=== PATIENT | female | born 1965 | race Caucasian/White ===

== ENCOUNTER 2017-03-21 08:10 | Observation (INO) | payer SELFPAY ==
[~2017-03-21] VITALS: Ht 165.1 cm; Wt 70.0 kg
[2017-03-21] VITALS (9 sets, daily range): BP systolic 125–183; BP diastolic 80–101; PULSE 62–96; RESP 16–19; TEMP 96.6–97.9; O2SAT 1–100
--- NOTE | 2017-03-21 08:39 | PD ---
HPI Chief Complaint: Chest Pain Time Seen by Provider: 08:25 Travel History International Travel<30 days: No Contact w/Intl Traveler<30days: No Traveled to known affect area: No History of Present Illness HPI The patient was seen and examined in the presence of the nurse. Patient complains of chest tightness and heaviness. Located left central chest. It radiates into the central chest. Started 2 hours ago. Nonexertional. Individual spells wax and wane and last about 5 minutes and goes away. Currently pain-free. No history of cardiac disease. Never stress testing. Symptoms severity is moderate. No alleviating factors. No exacerbating factors. She denies heartburn fever or cough. PFSH Past Medical History Diminished Hearing: No Reproductive: Yes (ENDOMETRIOSIS ) ?: Not Past Surgical History Hysterectomy: Yes (PARTIAL ) Joint Replacement: Yes (R ACL ) Social History Alcohol Use: Yes (OCC) Tobacco Use: No Substance Use: No Allergies-Medications (Allergen,Severity, Reaction): Coded Allergies: Penicillins (Verified Allergy, Unknown, RASHES , 03/21/17) codeine (Verified Allergy, Unknown, RASHES, 03/21/17) doxycycline (Verified Allergy, Unknown, Rash, 03/21/17) moxifloxacin (Verified Allergy, Unknown, Anaphylaxis, 03/21/17) Uncoded Allergies: SULFA DRUGS (Allergy, Unknown, Rash, 03/21/17) Reported Meds & Prescriptions Reported Meds & Active Scripts Active No Active Prescriptions or Reported Medications Review of Systems General / Constitutional: No: Fever Eyes: No: Visual changes HENT: No: Headaches Cardiovascular: Positive: Chest Pain or Discomfort Respiratory: No: Shortness of Breath Gastrointestinal: No: Abdominal Pain Genitourinary: No: Dysuria Musculoskeletal: No: Pain Skin: No Rash Neurologic: No: Weakness Psychiatric: No: Depression Endocrine: No: Polydipsia Hematologic/Lymphatic: No: Easy Bruising Physical Exam Narrative GENERAL: Well-nourished, well-developed patient in no apparent distress. SKIN: Focused skin assessment reveals no rash and nodules. Skin is Warm and dry. HEAD: Atraumatic. Normocephalic. EYES: Pupils equal and round. No scleral icterus. No injection or drainage. ENT: No nasal bleeding or discharge. Mucous membranes pink and moist. NECK: Trachea midline. No JVD. CARDIOVASCULAR: Regular rate and rhythm. No murmur appreciated. RESPIRATORY: No accessory muscle use. Clear to auscultation. Breath sounds equal bilaterally. GASTROINTESTINAL: Abdomen soft, non-tender, nondistended. Hepatic and splenic margins not palpable. MUSCULOSKELETAL: No obvious deformities. No clubbing. No cyanosis. No edema. NEUROLOGICAL: Awake and alert. No obvious cranial nerve deficits. Motor grossly within normal limits. Normal speech. PSYCHIATRIC: Appropriate mood and affect; insight and judgment normal. Data Data Last Documented VS Vital Signs Date Time Temp Pulse Resp B/P (MAP) Pulse Ox O2 Delivery O2 Flow Rate FiO2 03/21/17 09:00 74 18 160/92 (114) 99 Room Air 03/21/17 08:19 97.5 Orders Orders Electrocardiogram (03/21/17 08:31) Basic Metabolic Panel (Bmp) (03/21/17 08:31) Ckmb (Isoenzyme) Profile (03/21/17 08:31) Complete Blood Count With Diff (03/21/17 08:31) Magnesium (Mg) (03/21/17 08:31) Prothrombin Time / Inr (Pt) (03/21/17 08:31) Act Partial Throm Time (Ptt) (03/21/17 08:31) Troponin I (03/21/17 08:31) Chest, Single Ap (03/21/17 08:31) Ecg Monitoring (03/21/17 08:31) Iv Access Insert/Monitor (03/21/17 08:31) Oximetry (03/21/17 08:31) Aspirin (Aspirin) (03/21/17 08:45) Sodium Chloride 0.9% Flush (Ns Flush) (03/21/17 08:45) Labs Laboratory Tests Test 03/21/17 07:35 03/21/17 10:05 White Blood Count 9.0 TH/MM3 Red Blood Count 4.67 MIL/MM3 Hemoglobin 15.2 GM/DL Hematocrit 43.8 % Mean Corpuscular Volume 93.8 FL Mean Corpuscular Hemoglobin 32.6 PG Mean Corpuscular Hemoglobin Concent 34.7 % Red Cell Distribution Width 13.3 % Platelet Count 202 TH/MM3 Mean Platelet Volume 12.2 FL Neutrophils (%) (Auto) 70.7 % Lymphocytes (%) (Auto) 21.0 % Monocytes (%) (Auto) 6.6 % Eosinophils (%) (Auto) 1.1 % Basophils (%) (Auto) 0.6 % Neutrophils # (Auto) 6.4 TH/MM3 Lymphocytes # (Auto) 1.9 TH/MM3 Monocytes # (Auto) 0.6 TH/MM3 Eosinophils # (Auto) 0.1 TH/MM3 Basophils # (Auto) 0.1 TH/MM3 CBC Comment AUTO DIFF Differential Comment AUTO DIFF CONFIRMED Platelet Estimate NORMAL Platelet Morphology Comment ENLARGED Prothrombin Time 11.1 SEC Prothromb Time International Ratio 1.1 RATIO Activated Partial Thromboplast Time 26.8 SEC Blood Urea Nitrogen 12 MG/DL Creatinine 0.75 MG/DL Random Glucose 107 MG/DL Calcium Level 8.7 MG/DL Magnesium Level 2.2 MG/DL Sodium Level 143 MEQ/L Potassium Level 3.8 MEQ/L Chloride Level 112 MEQ/L Carbon Dioxide Level 25.9 MEQ/L Anion Gap 5 MEQ/L Estimat Glomerular Filtration Rate 81 ML/MIN Total Creatine Kinase 92 U/L Troponin I LESS THAN 0.02 NG/ML MDM Medical Decision Making Medical Screen Exam Complete: Yes Emergency Medical Condition: Yes Medical Record Reviewed: Yes Differential Diagnosis Differential diagnosis includes WI, angina, pericarditis, pleurisy, GERD, anxiety. Narrative Course I have reviewed the patient's electronic medical record. IV placed I reviewed the EKG which shows sinus rhythm and no ST elevation or ectopy I reviewed the chest x-ray is normal Extended cardiac monitoring shows sinus rhythm without ectopy CBC is normal Metabolic profile is normal CK is normal Troponin is normal Coagulation studies are normal I gave her an aspirin Patient is hypertensive but otherwise no risk factors. She has a negative workup here. She will be a 23 are observation on telemetry in the chest pain center in order to rule out cardiac cause of her symptoms. Diagnosis Primary Impression: Chest pain at rest Admitting Information Admitting Physician Requests: Observation Scripts No Active Prescriptions or Reported Meds Remy Blackwell MD Mar 21, 2017 08:39
[2017-03-21] MEDS ORDERED: ASPIRIN 325 MG TAB PO ONE (08:45)
[2017-03-21] MEDS ORDERED: SODIUM CHLORIDE 0.9% FLUSH 10 ML FLUSH IVF PRN (08:45)
--- NOTE | 2017-03-21 09:14 | RADRPT ---
EXAM DATE/TIME: 03/21/2017 08:50 [facility] COMPARISON: No previous studies available for comparison. INDICATIONS : Left upper chest pressure with shortness of breath and pain. MEDICAL HISTORY : None. SURGICAL HISTORY : None. ENCOUNTER: Initial ACUITY: 2 days PAIN SCORE: 7/10 LOCATION: Left chest FINDINGS: A single view of the chest demonstrates the lungs to be symmetrically aerated without evidence of mas s, infiltrate or effusion. The cardiomediastinal contours are unremarkable. Osseous structures are intact. CONCLUSION: Normal examination. Timothy Boogie MD on March 21, 2017 at 9:10 Board Certified Radiologist. This report was verified electronically.
[2017-03-21 09:23] LABS: AUTOMATED NEUTROPHIL # 6.4 TH/MM3 (1.8-7.7); BASOPHIL # 0.1 TH/MM3 (0-0.2); BASOPHIL % 0.6 % (0.0-2.0); EOSINOPHIL # 0.1 TH/MM3 (0-0.4); EOSINOPHIL % 1.1 % (0.0-4.0); HEMATOCRIT 43.8 % (35.0-46.0); HEMOGLOBIN 15.2 GM/DL (11.6-15.3); LYMPHOCYTE # 1.9 TH/MM3 (1.0-4.8); MEAN CELL VOLUME 93.8 FL (80.0-100.0); MEAN CORPUSCULAR HEMOGLOBIN 32.6 PG (27.0-34.0); MEAN CORPUSCULAR HGB CONC 34.7 % (32.0-36.0); MEAN PLATELET VOLUME 12.2 FL (7.0-11.0); MONO % 6.6 % (0.0-8.0); MONOCYTE # 0.6 TH/MM3 (0-0.9); NEUT % 70.7 % (16.0-70.0); PLATELET COUNT 202 TH/MM3 (150-450); RED BLOOD COUNT 4.67 MIL/MM3 (4.00-5.30); RED CELL DISTRIBUTION WIDTH 13.3 % (11.6-17.2)
[2017-03-21 10:31] LABS: INTERNATIONAL NORMALIZED RATIO 1.1 RATIO; PROTHROMBIN TIME - PATIENT 11.1 SEC (9.8-11.6)
[2017-03-21 10:37] LABS: BICARBONATE 25.9 MEQ/L (21.0-32.0); BLOOD UREA NITROGEN 12 MG/DL (7-18); CALCIUM 8.7 MG/DL (8.5-10.1); CHLORIDE 112 MEQ/L (98-107); CREATININE 0.75 MG/DL (0.50-1.00); GLOMERULAR FILTRATION RATE 81 ML/MIN (>89); GLUCOSE,RANDOM 107 MG/DL (74-106); MAGNESIUM 2.2 MG/DL (1.5-2.5); SODIUM (NA) 143 MEQ/L (136-145)
[2017-03-21 10:41] LABS: TROPONIN I LESS THAN 0.02 NG/ML (0.02-0.05)
[2017-03-21] MEDS ORDERED: ONDANSETRON HCL 4 MG/2 ML VIAL IV PUSH PRN (11:45)
[2017-03-21] MEDS ORDERED: ACETAMINOPHEN 500 MG CPLT PO PRN (11:45)
[2017-03-21] MEDS ORDERED: NITROGLYCERIN 0.4 MG SL 25 TABS/BTL SL PRN (11:45)
--- NOTE | 2017-03-21 12:28 | HHI.HP ---
HPI Primary Care Physician No Primary Care Physician Chief Complaint Chest tightness History of Present Illness 52-year-old female with no significant past medical history presents to emergency room for further evaluation of chest tightness. Onset approximately 6 :30 am. Location left anterior chest. Characterized as tightness. Discomfort began quickly with a gradual component. Associated symptoms of nausea and "like someone punched my stomach." Denied vomiting, diaphoresis, or dyspnea. Radiation to her left shoulder and her left scapula area. Duration 10 minutes. Severe in severity. After initial episode, approximately 5 minutes later experience second episode. Second episode duration 10-15 minutes. No known precipitating or relieving factors. Denies similar pain in the past. Notified her coworker and toy assembly supervisor, who encouraged her to come to the ER for further evaluation. Continues to experience intermittent tightness left anterior chest. Review of Systems General: No fatigue,weakness, fever, chills, recent illness, or change in appetite. As been in her general state of health. HEENT: No PIRES, no vision changes, no nasal congestion or drainage, no dysphasia CV: As stated above. No palpitations or dizziness RESP: No SOB, cough, wheeze, or recent URI GI: No nausea, vomiting, bowel changes, diarrhea, constipation, pain, distention , melena, blood in the stool. No change in appetite, no unintentional weight gain or weight loss. : No dysuria, urgency, frequency EXT: No lower leg edema, no paraesthesias MS: No discomfort or change in ROM NEURO: No difficulty with balance, LOC, motor/sensory deficits PSYCH: No anxiety, depression, or situational stress SKIN: No rashes, no concerning lesions Past Family Social History Allergies: Coded Allergies: Penicillins (Verified Allergy, Unknown, RASHES , 03/21/17) codeine (Verified Allergy, Unknown, RASHES, 03/21/17) doxycycline (Verified Allergy, Unknown, Rash, 03/21/17) moxifloxacin (Verified Allergy, Unknown, Anaphylaxis, 03/21/17) Uncoded Allergies: SULFA DRUGS (Allergy, Unknown, Rash, 03/21/17) Past Medical History Endometriosis Past Surgical History Partial hysterectomy, right ACL repair Reported Medications Reported Meds & Active Scripts Active No Active Prescriptions or Reported Medications Active Ordered Medications Current Medications Medications (Trade) Dose Ordered Sig/Emeka Route Start Time Stop Time Status Last Admin (NS Flush) 2 ml UNSCH PRN IVF 03/21/17 08:45 03/21/17 08:43 (NS Flush) 2 ml BID IV FLUSH 03/21/17 21:00 (Tylenol) 500 mg Q4H PRN PO 03/21/17 11:45 (Zofran Inj) 4 mg Q6H PRN IV PUSH 03/21/17 11:45 (Nitrostat Sl) 0.4 mg Q5M PRN SL 03/21/17 11:45 (Aspirin) 325 mg DAILY PO 03/22/17 09:00 Family History Noncontributory for early onset cardiovascular disease. Social History No known hypertension, hyperlipidemia, or diabetes. Lifelong nonsmoker. Endorses occasional whistling. Denies any illegal drug use. Endorses an active lifestyle, she is a yoga and psychiatric aide instructor. Past cardiac testing None Physical Exam Vital Signs Vital Signs Date Time Temp Pulse Resp B/P (MAP) Pulse Ox O2 Delivery O2 Flow Rate FiO2 03/21/17 09:00 74 18 160/92 (114) 99 Room Air 03/21/17 08:20 97 Room Air 03/21/17 08:19 97.5 96 19 170/89 (116) 1 03/21/17 08:12 97.8 69 16 183/101 (128) 100 Physical Exam GENERAL: Alert WN, WD, NAD, pleasant, female HEAD: NC, AT EYES: Sclera clear, conjunctiva without injection, pupils equal and round ENT: Mucous membranes pink and moist CV: RRR, without murmur, rub, gallop, no JVD, S1-S2 no S3-S4. Chest wall nontender with palpation. RESP: Clear lungs throughout bilateral, no crackles, wheeze, rhonchi, symmetrical chest rise, nonlabored, able to speak in full sentences ABD: Soft, NT, ND, no masses, positive bowel tones EXT: Pulses +24, no dependent edema MS: Normal tone 4 extremities, no obvious deformities, full range of motion NEURO: CN II through CN XII grossly intact, motor strength 5/5, PSYCH: A+O 3, pleasant affect, appropriate speech, mood, insight and judgment SKIN: Normal turgor, normal texture, no lesions, no rashes, even hair distribution Laboratory Laboratory Tests Test 03/21/17 07:35 03/21/17 10:05 White Blood Count 9.0 Red Blood Count 4.67 Hemoglobin 15.2 Hematocrit 43.8 Mean Corpuscular Volume 93.8 Mean Corpuscular Hemoglobin 32.6 Mean Corpuscular Hemoglobin Concent 34.7 Red Cell Distribution Width 13.3 Platelet Count 202 Mean Platelet Volume 12.2 Neutrophils (%) (Auto) 70.7 Lymphocytes (%) (Auto) 21.0 Monocytes (%) (Auto) 6.6 Eosinophils (%) (Auto) 1.1 Basophils (%) (Auto) 0.6 Neutrophils # (Auto) 6.4 Lymphocytes # (Auto) 1.9 Monocytes # (Auto) 0.6 Eosinophils # (Auto) 0.1 Basophils # (Auto) 0.1 CBC Comment AUTO DIFF Differential Comment AUTO DIFF CONFIRMED Platelet Estimate NORMAL Platelet Morphology Comment ENLARGED Prothrombin Time 11.1 Prothromb Time International Ratio 1.1 Activated Partial Thromboplast Time 26.8 Blood Urea Nitrogen 12 Creatinine 0.75 Random Glucose 107 Calcium Level 8.7 Magnesium Level 2.2 Sodium Level 143 Potassium Level 3.8 Chloride Level 112 Carbon Dioxide Level 25.9 Anion Gap 5 Estimat Glomerular Filtration Rate 81 Total Creatine Kinase 92 Troponin I LESS THAN 0.02 Result Diagram: 03/21/17 0735 03/21/17 1005 Imaging Last 48 hours Impressions Chest X-Ray 03/21/17 0831 Signed Impressions: Service Date/Time: Tuesday, March 21, 2017 08:50 - CONCLUSION: Normal examination. Timothy Boogie MD Course EKG normal sinus rhythm, normal axis, no ST or T-segment changes Caprini VTE Risk Assessment Caprini VTE Risk Assessment: No/Low Risk (score <= 1) Caprini Risk Assessment Model Point Value = 1 Point Value = 2 Point Value = 3 Point Value = 5 Age 41-60 Minor surgery BMI > 25 kg/m2 Swollen legs Varicose veins or History of unexplained or recurrent spontaneous Oral contraceptives or hormone replacement Sepsis (< 1 month) Serious lung disease, including pneumonia (< 1 month) Abnormal pulmonary function Acute myocardial infarction Congestive heart failure (< 1 month) History of inflammatory bowel disease Medical patient at bed rest Age 61-74 Arthroscopic surgery Major open surgery (> 45 min) Laparoscopic surgery (> 45 min) Malignancy Confined to bed (> 72 hours) Immobilizing plaster cast Central venous access Age >= 75 History of VTE Family history of VTE Factor V Leiden Prothrombin [id number] Lupus anticoagulant Anticardiolipin antibodies Elevated serum homocysteine Heparin-induced thrombocytopenia Other congenital or acquired thrombophilia Stroke (< 1 month) Elective arthroplasty Hip, pelvis, or leg fracture Acute spinal cord injury (< 1 month) Prophylaxis Regimen Total Risk Factor Score Risk Level Prophylaxis Regimen 0-1 Low Early ambulation 2 Moderate Order ONE of the following: *Sequential Compression Device (SCD) *Heparin 5000 units SQ BID 3-4 Higher Order ONE of the following medications: *Heparin 5000 units SQ TID *Enoxaparin/Lovenox 40 mg SQ daily (WT < 150 kg, CrCl > 30 mL/min) *Enoxaparin/Lovenox 30 mg SQ daily (WT < 150 kg, CrCl > 10-29 mL/min) *Enoxaparin/Lovenox 30 mg SQ BID (WT < 150 kg, CrCl > 30 mL/min) AND/OR *Sequential Compression Device (SCD) 5 or more Highest Order ONE of the following medications: *Heparin 5000 units SQ TID (Preferred with Epidurals) *Enoxaparin/Lovenox 40 mg SQ daily (WT < 150 kg, CrCl > 30 mL/min) *Enoxaparin/Lovenox 30 mg SQ daily (WT < 150 kg, CrCl > 10-29 mL/min) *Enoxaparin/Lovenox 30 mg SQ BID (WT < 150 kg, CrCl > 30 mL/min) AND *Sequential Compression Device (SCD) Assessment and Plan Assessment and Plan #1 Atypical chest pain-admitted chest pain center. Rule out with 3 sets of EKGs and cardiac enzymes. Will been seen and evaluated by Dr. Roberta Trotter. Discussed possibility of completing exercise stress test after being ruled out and assessed by wellhead pumper. Patient agreeable to plan of care. #2 Hypertension- Denies history of hypertension. Blood pressure may be elevated due to pain and/or anxiety, continue to monitor. Consider amlodipine 5 mg 1 dose. Tonya Unger Mar 21, 2017 12:28
[2017-03-21] MEDS ORDERED: KETOROLAC TROMETHAMINE 30 MG/ML (IVP) VIAL IV PUSH ONE (12:30)
[2017-03-21] MEDS ORDERED: amLODIPine BESYLATE 5 MG TAB PO ONE (13:30)
[2017-03-21 13:58] LABS: TROPONIN I LESS THAN 0.02 NG/ML (0.02-0.05)
--- NOTE | 2017-03-21 14:32 | EKG ---
Date Performed: 03/21/2017 Time Performed: 13:25:18 PTAGE: 52 years EKG: Sinus rhythm NORMAL ECG Since PREVIOUS TRACING , no significant change noted PREVIOUS TRACIN03/21/2017 08.22 DOCTOR: Michael Soares Interpretating Date/Time 03/25/2017 15:03:00
[2017-03-21 16:45] LABS: TROPONIN I LESS THAN 0.02 NG/ML (0.02-0.05)
--- NOTE | 2017-03-21 16:58 | EKG ---
Date Performed: 03/21/2017 Time Performed: 08:22:46 PTAGE: 52 years EKG: Sinus rhythm POSSIBLE LEFT ATRIAL ENLARGEMENT BORDERLINE ECG NO PREVIOUS TRACING DOCTOR: Roberta Trotter Interpretating Date/Time 03/21/2017 16:56:26
--- NOTE | 2017-03-21 17:18 | HHI.DCPOC ---
Discharge Care Plan Diagnosis: (1) Atypical chest pain Goals to Promote Your Health * To prevent worsening of your condition and complications * To maintain your health at the optimal level Directions to Meet Your Goals Take your medications as prescribed Follow your dietary instruction Follow activity as directed Keep your appointments as scheduled Take your immunizations and boosters as scheduled If your symptoms worsen call your PCP, if no PCP go to Urgent Care Center or Emergency Room Smoking is Dangerous to Your Health. Avoid second hand smoke Call the 24-hour hour crisis hotline for domestic abuse at Tonya Unger Mar 21, 2017 17:18
[2017-03-21] MEDS ORDERED: SODIUM CHLORIDE 0.9% FLUSH 10 ML FLUSH IV FLUSH SCH (21:00)
[2017-03-22 00:05] VITALS: PULSE 64
[2017-03-22 04:00] VITALS: PULSE 50
[2017-03-22 04:44] VITALS: BP 131/86; PULSE 74; RESP 18; TEMP 97.9; O2SAT 100
[2017-03-22 07:10] VITALS: BP 141/81; PULSE 61; RESP 18; TEMP 98.2; O2SAT 99
[2017-03-22 07:44] VITALS: O2SAT 100
[2017-03-22 08:00] VITALS: PULSE 65
[2017-03-22] MEDS ORDERED: ASPIRIN 325 MG TAB PO SCH (09:00)
--- NOTE | 2017-03-22 13:06 | EKG ---
Date Performed: 03/21/2017 Time Performed: 15:57:51 PTAGE: 52 years EKG: SINUS BRADYCARDIA BORDERLINE ECG PREVIOUS TRACING : 03/21/2017 15.57 DOCTOR: Charanjit Burr Interpretating Date/Time 03/22/2017 13:05:41
--- NOTE | 2017-03-22 13:12 | TR ---
Date Performed: 03/22/2017 Time Performed: 09:03:09 DOCTOR: Charanjit Burr DRUG LIST: CLINICAL HISTORY: CHEST PAIN REASON FOR TEST: REASON FOR ENDING: OBSERVATION: CONCLUSION: AMPARO PROTOCOL. NO CP. TEST STOPPED AFTER EXCEEDING GOAL HR SECONDARY TO SOB AND LEG FATIGUE.Maximum YI=379 % Max HR Achieved=90.0% Maximum OS=656/82 Total Exercise Time=5:42 COMMENTS: Patient exercised using the Amparo protocol. No electrocardiographic changes were seen to suggest ischemia. Hemodynamic response to exercise was normal. No significant arrhythmia was prese nt.
== END 2017-03-22 12:18 | disposition home or self-care (01) ==
LOC: NEPE 08:10 → NEDA 11:12 → NEPGCP 12:19
PROVIDERS: ADMIT Internal Medicine Interventional Cardiology; ATTEND Internal Medicine Interventional Cardiology
DX: R07.89 Other chest pain (principal); I10 Essential (primary) hypertension; R94.31 Abnormal electrocardiogram [ECG] [EKG]; Z90.710 Acquired absence of both cervix and uterus
CPT/HCPCS: 71045; 80048; 82550; 82552; 83735; 84484; 85025; 85610; 85730; 93005; 93017; 96374; 99285; G0378; J1885